=== PATIENT | female | born 1985 | race Caucasian/White ===

== ENCOUNTER 2018-07-21 21:27 | Observation (INO) ==
[2018-07-21 21:54] LABS: Microscopic, Urine URINE MICROSCOPIC (MICROSCOPIC)
[2018-07-21 21:57] LABS: Basophils # 0.1 K/mm3 (0-0.2); Basophils % 0.5 % (0.1-2.0); Eosinophils # 0.1 K/mm3 (0.0-0.4); Eosinophils % 1.1 % (0.1-12.0); Hematocrit 37.5 % (37.0-47.0); Hemoglobin 12.5 g/dL (12.2-16.2); Lymphocytes # 2.4 K/mm3 (0.7-4.5); Mean Corpuscular HGB Conc 33.3 g/dL (31.8-35.4); Mean Corpuscular Hemoglobin 30.3 pg (27.0-31.2); Mean Platelet Volume 9.1 fl (7.4-10.4); Monocytes # 0.4 K/mm3 (0.1-1.0); Monocytes % 4.3 % (1.7-9.3); Neutrophils # 6.6 K/mm3 (1.8-7.8); Neutrophils % 69.1 % (37.0-80.0); Platelet Count 188 K/mm3 (142-424); Red Blood Count 4.12 M/mm3 (4.20-5.40); Red Cell Distribution Width 13.3 % (11.5-17.5); White Blood Count 9.6 K/mm3 (4.8-10.8)
[2018-07-21 22:07] LABS: Appearance,Urine CLEAR (Clear); Bilirubin,Urine Negative (Negative); Blood, Urine 1+ (Negative); Color,Urine YELLOW (Yellow); Glucose,Urine (UA) Negative (Negative); Ketones,Urine Negative (Negative); Leukocyte Esterase,Urine Negative (Negative); Protein,Urine Negative (Negative); Urobilinogen,Urine 0.2 EU/dl (0.2)
[2018-07-21 22:09] LABS: Albumin Level 4.2 gm/dL (3.4-5.0); Albumin/Globulin Ratio 1.2 (1.1-1.8); Anion Gap 12.9 mEq/L (5-15); Bilirubin,Total 0.5 mg/dL (0.2-1.0); Globulin 3.5 gm/dl (1.3-3.2); Potassium 3.9 mmoL/L (3.5-5.1); Total Protein,Serum 7.7 gm/dL (6.4-8.2)
[2018-07-21 22:53] LABS: Bacteria,Urine 2+ /lpf
--- NOTE | 2018-07-21 23:17 | Emergency Department Note ---
ED Disposition Clinical Impression: Biliary dyskinesia Disposition: Admitted as Observation Condition on Discharge: Good Instructions: DI for Acute Abdomen Referrals: Pinky Sanchez [Primary Care Provider] - - Critical Care Critical Care Time: No Attestation: On 07/21/18, the high probability of a clinically significant, sudden or life threatening deterioration of the following system(s) required my full and direct attention, intervention and personal management. The time I documented below is in addition to time spent performing reported procedures but includes the following listed in this critical care notation. Medical Decision Making - Medical Records Medical records reviewed: Yes: I reviewed the patient's medical records. - Arvind Inquiry Pt receiving controlled substance: No Vital Signs: 07/21/18 21:28 07/21/18 22:28 Temperature 98.1 F Temperature Source Oral Pulse Rate [Right Brachial] 80 84 Respiratory Rate 16 17 Blood Pressure [Right Arm] 141/101 H 144/74 H Blood Pressure Mean [Right Arm] 114 97 02 Sat by Pulse Oximetry 97 98 - Lab Data Lab results reviewed: Yes: I reviewed the patient's lab results. Lab Results 07/21/18 21:45: Urine Color Yellow, Urine Appearance Clear, Urine pH 7.0, Ur Specific [place] 1.020, Urine Protein Negative, Urine Glucose (UA) Negative, Urine Ketones Negative, Urine Blood 1+, Urine Nitrate Negative, Urine Bilirubin Negative, Urine Urobilinogen 0.2, Ur Leukocyte Esterase Negative, Urine RBC 3-5, Urine WBC 3-5, Ur Squamous Epith Cells 3-5, Urine Bacteria 2+ 07/21/18 21:45: WBC 9.6, RBC 4.12 L, Hgb 12.5, Hct 37.5, MCV 91.0, MCH 30.3, MCH C 33.3, RDW 13.3, Plt Count 188, MPV 9.1, Neut % (Auto) 69.1, Lymph % (Auto) 25.0, [place] % (Auto) 4.3, Eos % (Auto) 1.1, Baso % (Auto) 0.5, Neut # (Auto) 6.6, Lymph # (Auto) 2.4, [place] # (Auto) 0.4, Eos # (Auto) 0.1, Baso # (Auto) 0.1 07/21/18 21:45: Urine HCG, Qual Negative 07/21/18 21:45: Sodium 140, Potassium 3.9, Chloride 103, Carbon Dioxide 28, Anion Gap 12.9, BUN 10, Creatinine 0.60, Estimated Creat Clear 154, Estimated GFR 117, Est GFR ( Amer) 141, Glucose 93, Calcium 9.0, Total Bilirubin 0.5, AST 68 H, ALT 57, Alkaline Phosphatase 90, Total Protein 7.7, Albumin 4.2, Globulin 3.5 H, Albumin/Globulin Ratio 1.2, Amylase 40, Lipase 212 Result diagrams: 07/21/18 21:45 07/21/18 21:45 Orders (Tests/Meds): ED MEDICATIONS Discontinued Medications Generic Name Dose Route Start Last Admin Trade Name Freq PRN Reason Stop Dose Admin Famotidine 20 mg 07/21/18 21:39 07/21/18 21:46 Pepcid 20mg/2ml Vial IV 07/21/18 21:40 20 mg ONCE ONE Administration Sodium Chloride 1,000 mls @ 999 mls/hr 07/21/18 21:45 07/21/18 21:47 Sod Chlor 0.9% 1000ml Bag IV 07/21/18 22:45 999 mls/hr .Q1H1M ERIC Administration Metoclopramide HCl 10 mg 07/21/18 21:39 07/21/18 21:47 Reglan 10mg/2ml Vial IVP 07/21/18 21:40 10 mg ONCE ONE Administration ORDERS Category Date Time Status CT abdomen pelvis wo con Stat Cat Scan 07/21/18 21:40 Taken Urinalysis and Microscopic Stat Lab 07/21/18 21:45 Ordered Urine Culture Stat Micro 07/21/18 21:45 Received - CT Data CT Scan: Abdomen, Pelvis Time Received: 23:[address] Reviewed: Yes: I have viewed the radiologist's interpretation Preliminary Findings: Abnormal (see report ) - Physician Consults Physician Consulted: leigh ann Reason -: Admission Nausea/Vomiting/Diarrhea HPI - General Chief complaint: Abdominal Pain Stated complaint: Upper Abd and Back Pain Time Seen by Provider: 07/21/18 23:10 Mode of Arrival: Ambulatory Source of Information: Patient, Significant Other, Medical Record ( ) Limitations: No Limitations Description of Symptoms (Recalled from ER Triage Doc. by RN): Reports heartburn, nausea, and mid gastric abd pain that started a couple months ago after the of her child. Reports she thinks it is gallbladder. Reports she came in tonight because her pain got worse over the last 3 hours. - History of Present Illness HPI Narrative: progressive upper abd pain with nausea and rad to back - which has been more common and worse pain tonight with nausea but no fever MD complaint: nausea, vomiting, abdominal pain Onset (ago): week(s) Associated Abdominal Pain: Yes Location of pain: RUQ, epigastric Severity: moderate Consistency: intermittent Associated symptoms: nausea/vomiting - Related Data Home Medications Medication Instructions Recorded Confirmed No Known Home Medications 07/21/18 07/21/18 Allergies Allergy/AdvReac Type Severity Reaction Status Date / Time No Known Allergies Allergy Verified 07/21/18 21:39 [facility] History I have reviewed the patient's past medical history: Yes ROS Obtained: Yes All systems reviewed & no additional complaints - Constitutional Constitutional: Denies fever(s) - Eyes Eyes: Denies change in vision - ENT Ears, Nose, Mouth, and Throat: Denies sore throat - Cardiovascular Cardiovascular: Denies chest pain - Respiratory Respiratory: No cough - Gastrointestinal Gastrointestingal: Reports: as per HPI, abdominal pain, nausea. Denies: diarrhea, vomiting - Genitourinary Female Genitourinary: Denies hematuria - Musculoskeletal Musculoskeletal: Denies joint pain, Denies neck pain - Integumentary/Breasts Skin/Breast: Denies rash - Neurologic Neurologic: Denies seizure-like activity Physical Exam - General General appearance: alert, in no apparent distress - Head Head exam: normocephalic - Eye Eye exam: Present: PERRL, EOMI. Absent: scleral icterus - ENT ENT exam: Present: mucous membranes moist - Neck Neck exam: Present: trachea midline - Respiratory Respiratory exam: Present: normal lung sounds bilaterally - Cardiovascular Cardiovascular exam: Present: regular rate. Absent: systolic murmur - Abdominal Exam Abdominal exam: Present: soft, tenderness, Rogers's sign Abdominal tenderness: Present: RUQ, moderate - Extremities Exam Extremities exam: Present: full ROM - Back Exam Back exam: Absent: CVA tenderness (R) - Neurological Exam Neurological exam: Present: alert, oriented X3, CN II-XII intact - Psychiatric Psychiatric exam: Present: normal affect - Skin Skin exam: Absent: rash
[2018-07-22 06:34] LABS: Albumin Level 3.4 gm/dL (3.4-5.0); Albumin/Globulin Ratio 1.2 (1.1-1.8); Bilirubin,Total 0.9 mg/dL (0.2-1.0); Calcium 8.1 mg/dL (8.5-10.1); Globulin 2.8 gm/dl (1.3-3.2); Total Protein,Serum 6.2 gm/dL (6.4-8.2)
[2018-07-22 06:43] LABS: Basophils % 0.7 % (0.1-2.0); Eosinophils % 0.9 % (0.1-12.0); Hematocrit 32.5 % (37.0-47.0); Lymphocytes # 1.2 K/mm3 (0.7-4.5); Lymphocytes % 30.6 K/mm3 (10-50); Mean Corpuscular HGB Conc 32.9 g/dL (31.8-35.4); Mean Corpuscular Hemoglobin 30.1 pg (27.0-31.2); Mean Corpuscular Volume 91.7 fl (81-99); Monocytes # 0.2 K/mm3 (0.1-1.0); Monocytes % 5.6 % (1.7-9.3); Neutrophils # 2.5 K/mm3 (1.8-7.8); Neutrophils % 62.2 % (37.0-80.0); Platelet Count 178 K/mm3 (142-424); Red Blood Count 3.54 M/mm3 (4.20-5.40); Red Cell Distribution Width 13.4 % (11.5-17.5)
[2018-07-22 06:54] LABS: Hemoglobin 10.8 g/dL (12.2-16.2)
--- NOTE | 2018-07-22 07:16 | History & Physical Report ---
HPI HPI: This is a 32-year-old female who presented to the emergency room overnight with increasing pain in the epigastric region. She describes a 5-6-month history of intermittent pain in the epigastric region and mid abdomen. Some nausea with emesis. No jaundice. No fevers. She describes the pain as "sharp and sometimes burning and sometimes dull". Patient in the emergency department revealed no significant laboratory abnormality. A CT scan did reveal distention of the gallbladder and an ultrasound has been. Repeat laboratory evaluation reveals elevated transaminases. [facility] History Medical History: Reports:: Palpitations Denies:: Cancer, Diabetes Mellitus Type 1, Diabetes Mellitus Type 2, MRSA Amputation: No - *Social History Educational Level: Completed College Smoking Status: Never smoker Alcohol Intake: never Occupational Status: employed Housing: house Household Members: spouse - Psychiatric History Expresses thoughts of harming self/others: None Suicide Plan Description: No Plan *Family Hx:: Cancer, Diabetes Review of Systems - Constitutional Denies body ache(s) - Eyes Denies change in vision - ENT Denies change in voice - *Cardiovascular Denies chest pain - *Respiratory Denies cough - *Gastrointestinal Reports abdominal pain, Reports heartburn, Reports nausea, Reports vomiting, Denies vomiting blood, Denies loose stools, Denies black, tarry stools, Denies pain with swallowing - *Genitourinary Denies abnormal vaginal bleeding - *Musculoskeletal Denies abnormal walking - Integumentary/Breasts Denies change in hair - *Neurologic Denies seizure-like activity - Psychiatric Denies anxiety - Endocrine Denies cold intolerance - Hematologic/Lymphatic Denies easy bleeding - Allergic/Immunologic Reports GI upset with certain foods Meds Home Medications Medication Instructions Recorded Confirmed Type No Known Home Medications 07/21/18 07/21/18 History Allergies Allergy/AdvReac Type Severity Reaction Status Date / Time No Known Allergies Allergy Verified 07/21/18 21:39 Exam Vital signs and Labs for Last 24 Hours: Temp Pulse Resp BP Pulse Ox 98.3 F 87 14 107/62 L 95 07/22/18 04:14 07/22/18 04:14 07/22/18 04:14 07/22/18 04:14 07/22/18 04:14 Laboratory Results - last 24 hr 07/21/18 21:45: Urine Color Yellow, Urine Appearance Clear, Urine pH 7.0, Ur Specific [place] 1.020, Urine Protein Negative, Urine Glucose (UA) Negative, Urine Ketones Negative, Urine Blood 1+, Urine Nitrate Negative, Urine Bilirubin Negative, Urine Urobilinogen 0.2, Ur Leukocyte Esterase Negative, Urine RBC 3-5, Urine WBC 3-5, Ur Squamous Epith Cells 3-5, Urine Bacteria 2+ 07/21/18 21:45: WBC 9.6, RBC 4.12 L, Hgb 12.5, Hct 37.5, MCV 91.0, MCH 30.3, MCHC 33.3, RDW 13.3, Plt Count 188, MPV 9.1, Neut % (Auto) 69.1, Lymph % (Auto) 25.0, [place] % (Auto) 4.3, Eos % (Auto) 1.1, Baso % (Auto) 0.5, Neut # (Auto) 6.6, Lymph # (Auto) 2.4, [place] # (Auto) 0.4, Eos # (Auto) 0.1, Baso # (Auto) 0.1 07/21/18 21:45: Urine HCG, Qual Negative 07/21/18 21:45: Sodium 140, Potassium 3.9, Chloride 103, Carbon Dioxide 28, Anion Gap 12.9, BUN 10, Creatinine 0.60, Estimated Creat Clear 154, Estimated GFR 117, Est GFR ( Amer) 141, Glucose 93, Calcium 9.0, Total Bilirubin 0.5, AST 68 H, ALT 57, Alkaline Phosphatase 90, Total Protein 7.7, Albumin 4.2, Globulin 3.5 H, Albumin/Globulin Ratio 1.2, Amylase 40, Lipase 212 07/22/18 06:07: WBC 4.0 L D, RBC 3.54 L, Hgb 10.8 L D, Hct 32.5 L, MCV 91.7, MCH 30.1, MCHC 32.9, RDW 13.4, Plt Count 178, MPV 9.0, Neut % (Auto) 62.2, Lymph % (Auto) 30.6, [place] % (Auto) 5.6, Eos % (Auto) 0.9, Baso % (Auto) 0.7, Neut # (Auto) 2.5, Lymph # (Auto) 1.2, [place] # (Auto) 0.2, Eos # (Auto) 0.0, Baso # (Auto) 0.0 07/22/18 06:07: Sodium 139, Potassium 4.0, Chloride 108 H, Carbon Dioxide 23, Anion Gap 12.0, BUN 8, Creatinine 0.53 L, Estimated Creat Clear 181, Estimated GFR 135, Est GFR ( Amer) 163, Glucose 102, Calcium 8.1 L, Total Bilirubin 0.9, AST 525 H* D, ALT 367 H*, Alkaline Phosphatase 111, Total Protein 6.2 L, Albumin 3.4 D, Globulin 2.8, Albumin/Globulin Ratio 1.2 I & O for Last 24 hours: Intake & Output 07/19/18 07/20/18 07/21/18 07/22/18 11:59 11:59 11:59 11:59 Intake Total 1000 / 1000 Balance 1000 / 1000 Weight 164 lb 5 oz - Constitutional no acute distress - *Routine HEENT Exam Head: Present: normocephalic, atraumatic - *Routine Neck Exam Present: full ROM - Routine Chest/Breast/Axilla Exam Chest wall: Absent: tenderness - *Routine Respiratory Exam Absent: respiratory distress - *Routine Cardiovascular Exam Present: RRR - *Routine Abdominal Exam Present: soft, tenderness. Absent: distended, rebound, guarding - *Routine Extremities Exam Present: full ROM. Absent: cyanosis, clubbing, edema - Routine Back/Spine/Pelvis Exam Back/Spine: Present: full ROM - *Routine Skin Exam Present: intact - *Routine Neurological Exam Present: alert, oriented X3 - Routine Psychiatric Exam Present: normal affect Results - Results Lab Results Last 24 Hours:: Laboratory Results - last 24 hr 07/21/18 21:45: Urine Color Yellow, Urine Appearance Clear, Urine pH 7.0, Ur Specific [place] 1.020, Urine Protein Negative, Urine Glucose (UA) Negative, Urine Ketones Negative, Urine Blood 1+, Urine Nitrate Negative, Urine Bilirubin Negative, Urine Urobilinogen 0.2, Ur Leukocyte Esterase Negative, Urine RBC 3-5, Urine WBC 3-5, Ur Squamous Epith Cells 3-5, Urine Bacteria 2+ 07/21/18 21:45: WBC 9.6, RBC 4.12 L, Hgb 12.5, Hct 37.5, MCV 91.0, MCH 30.3, MCHC 33.3, RDW 13.3, Plt Count 188, MPV 9.1, Neut % (Auto) 69.1, Lymph % (Auto) 25.0, [place] % (Auto) 4.3, Eos % (Auto) 1.1, Baso % (Auto) 0.5, Neut # (Auto) 6.6, Lymph # (Auto) 2.4, [place] # (Auto) 0.4, Eos # (Auto) 0.1, Baso # (Auto) 0.1 07/21/18 21:45: Urine HCG, Qual Negative 07/21/18 21:45: Sodium 140, Potassium 3.9, Chloride 103, Carbon Dioxide 28, Anion Gap 12.9, BUN 10, Creatinine 0.60, Estimated Creat Clear 154, Estimated GFR 117, Est GFR ( Amer) 141, Glucose 93, Calcium 9.0, Total Bilirubin 0.5, AST 68 H, ALT 57, Alkaline Phosphatase 90, Total Protein 7.7, Albumin 4.2, Globulin 3.5 H, Albumin/Globulin Ratio 1.2, Amylase 40, Lipase 212 07/22/18 06:07: WBC 4.0 L D, RBC 3.54 L, Hgb 10.8 L D, Hct 32.5 L, MCV 91.7, MCH 30.1, MCHC 32.9, RDW 13.4, Plt Count 178, MPV 9.0, Neut % (Auto) 62.2, Lymph % (Auto) 30.6, [place] % (Auto) 5.6, Eos % (Auto) 0.9, Baso % (Auto) 0.7, Neut # (Auto) 2.5, Lymph # (Auto) 1.2, [place] # (Auto) 0.2, Eos # (Auto) 0.0, Baso # (Auto) 0.0 07/22/18 06:07: Sodium 139, Potassium 4.0, Chloride 108 H, Carbon Dioxide 23, Anion Gap 12.0, BUN 8, Creatinine 0.53 L, Estimated Creat Clear 181, Estimated GFR 135, Est GFR ( Amer) 163, Glucose 102, Calcium 8.1 L, Total Bilirubin 0.9, AST 525 H* D, ALT 367 H*, Alkaline Phosphatase 111, Total Protein 6.2 L, Albumin 3.4 D, Globulin 2.8, Albumin/Globulin Ratio 1.2 US - abdomen: pending Assessment and Plan (1) Distended bladder Current visit: Yes Status: Acute Category: Medical Code(s): N32.89 - Other specified disorders of bladder Follow-up pending ultrasound (2) Transaminasemia Current visit: Yes Status: Acute Category: Medical Code(s): R74.0 - Nonspecific elevation of levels of transaminase and lactic acid dehydrogenase [LDH] Hepatitis panel ordered (3) Biliary dyskinesia Current visit: Yes Status: Acute Category: Medical Code(s): K82.8 - Other specified diseases of gallbladder Possible cholecystectomy (pending above) The patient states that she feels "much better this morning". She states that she would prefer to have surgery later this week and not today if at all possible.
--- NOTE | 2018-07-22 07:34 | Pharmacy Consult Notes ---
[facility] Pharmacy VTE Monitoring - Patient Demographics Admission date: 07/21/18 Report Date: 07/22/18 Time: 07:34 Allergies/Adverse Reactions: Patient Allergies No Known Allergies Allergy (Verified 07/21/18 21:39) Height: 1.57 m Weight: 74.531 kg Patient Problems: Current Active Problems Biliary dyskinesia (Acute) Distended bladder (Acute) Transaminasemia (Acute) - VTE Risk Labs: VTE Related Lab Results Hgb 10.8 g/dL (12.2-16.2) L D 07/22/18 06:07 Hct 32.5 % (37.0-47.0) L 07/22/18 06:07 Plt Count 178 K/mm3 (142-424) 07/22/18 06:07 BUN 8 mg/dL (7-18) 07/22/18 06:07 Creatinine 0.53 mg/dL (0.55-1.02) L 07/22/18 06:07 Estimated Creat Clear 181 mL/min (0-300) 07/22/18 06:07 Was VTE Risk Assessment Performed: No VTE Risk Level: Very Low Risk - Prophylaxis VTE Prophylaxis Ordered?: Yes Types of VTE Prophylaxis: TEDS Knee High Location of Applied Device: Bilateral Lower Extremeties - VTE Diagnosis Confirmed Treatment or plan recommended: Continue Current Treatment
--- NOTE | 2018-07-22 12:03 | Progress Note ---
Subjective Patient reports: feels better Exam Vital signs and Labs for Last 24 Hours: Temp Pulse Resp BP Pulse Ox 98.4 F 67 16 115/70 95 07/22/18 07:16 07/22/18 07:16 07/22/18 07:16 07/22/18 07:16 07/22/18 07:16 Laboratory Results - last 24 hr 07/21/18 21:45: Urine Color Yellow, Urine Appearance Clear, Urine pH 7.0, Ur Specific [place] 1.020, Urine Protein Negative, Urine Glucose (UA) Negative, Urine Ketones Negative, Urine Blood 1+, Urine Nitrate Negative, Urine Bilirubin Negative, Urine Urobilinogen 0.2, Ur Leukocyte Esterase Negative, Urine RBC 3-5, Urine WBC 3-5, Ur Squamous Epith Cells 3-5, Urine Bacteria 2+ 07/21/18 21:45: WBC 9.6, RBC 4.12 L, Hgb 12.5, Hct 37.5, MCV 91.0, MCH 30.3, MCHC 33.3, RDW 13.3, Plt Count 188, MPV 9.1, Neut % (Auto) 69.1, Lymph % (Auto) 25.0, [place] % (Auto) 4.3, Eos % (Auto) 1.1, Baso % (Auto) 0.5, Neut # (Auto) 6.6, Lymph # (Auto) 2.4, [place] # (Auto) 0.4, Eos # (Auto) 0.1, Baso # (Auto) 0.1 07/21/18 21:45: Urine HCG, Qual Negative 07/21/18 21:45: Sodium 140, Potassium 3.9, Chloride 103, Carbon Dioxide 28, Anion Gap 12.9, BUN 10, Creatinine 0.60, Estimated Creat Clear 154, Estimated GFR 117, Est GFR ( Amer) 141, Glucose 93, Calcium 9.0, Total Bilirubin 0.5, AST 68 H, ALT 57, Alkaline Phosphatase 90, Total Protein 7.7, Albumin 4.2, Globulin 3.5 H, Albumin/Globulin Ratio 1.2, Amylase 40, Lipase 212 07/22/18 06:07: WBC 4.0 L D, RBC 3.54 L, Hgb 10.8 L D, Hct 32.5 L, MCV 91.7, MCH 30.1, MCHC 32.9, RDW 13.4, Plt Count 178, MPV 9.0, Neut % (Auto) 62.2, Lymph % (Auto) 30.6, [place] % (Auto) 5.6, Eos % (Auto) 0.9, Baso % (Auto) 0.7, Neut # (Auto) 2.5, Lymph # (Auto) 1.2, [place] # (Auto) 0.2, Eos # (Auto) 0.0, Baso # (Auto) 0.0 07/22/18 06:07: Sodium 139, Potassium 4.0, Chloride 108 H, Carbon Dioxide 23, Anion Gap 12.0, BUN 8, Creatinine 0.53 L, Estimated Creat Clear 181, Estimated GFR 135, Est GFR ( Amer) 163, Glucose 102, Calcium 8.1 L, Total Bilirubin 0.9, AST 525 H* D, ALT 367 H*, Alkaline Phosphatase 111, Total Protein 6.2 L, Albumin 3.4 D, Globulin 2.8, Albumin/Globulin Ratio 1.2 I & O for Last 24 hours: Intake & Output 07/20/18 07/21/18 07/22/18 07/23/18 11:59 11:59 11:59 11:59 Intake Total 1000 / 1000 Balance 1000 / 1000 Weight 164 lb 5 oz Narrative: The patient's liver function studies reveal elevated transaminases. The patient's ultrasound reveals changes consistent with acute calculus cholecystitis. - Constitutional no acute distress Progress Note: A&P (1) Distended bladder Status: Acute Current Visit: Yes (2) Transaminasemia Status: Acute Current Visit: Yes (3) Acute calculous cholecystitis Status: Acute Assessment and plan: The patient is currently without symptoms and states that she "wants to go home". She is scheduled for laparoscopic cholecystectomy tomorrow. She will be discharged with a prescription for Augmentin and [place]. She will return tomorrow where her liver function studies and her amylase/lipase will be repeated. Pending results of studies she will undergo laparoscopic cholecystectomy with possible cholangiogram. Current Visit: Yes
--- NOTE | 2018-07-22 12:06 | Discharge Summary ---
General - General Admission date:: 07/22/18 Discharge date: 07/22/18 HPI HPI: This is a 32-year-old female who presented with abdominal pain and nausea. CT scan revealed a distended gallbladder and the surgical service was consulted for admission. Hospital Course Hospital Course: Initially the patient's laboratory studies were essentially normal. Repeat liver function studies revealed elevated transaminases. Hepatitis panel was ordered prior to ultrasound results being available. The patient's ultrasound did show changes consistent with acute calculus cholecystitis. On the morning of July 22 the patient was essentially without symptoms. She did say that she wished to go home with plans for laparoscopic cholecystectomy on July 23. The patient will return on July 23 where amylase/lipase and LFTs will be repeated. Pending results of the studies she will undergo laparoscopic cholecystectomy and possible cholangiogram. She is being discharged with Augmentin and [place]. Objective Vital signs: Temp Pulse Resp BP Pulse Ox 98.4 F 67 16 115/70 95 07/22/18 07:16 07/22/18 07:16 07/22/18 07:16 07/22/18 07:16 07/22/18 07:16 no acute distress - *Routine HEENT Exam Head: Present: normocephalic, atraumatic - *Routine Neck Exam Present: full ROM - Routine Chest/Breast/Axilla Exam Chest wall: Absent: tenderness - *Routine Respiratory Exam Absent: respiratory distress - *Routine Cardiovascular Exam Present: RRR - *Routine Abdominal Exam Present: soft. Absent: tenderness - *Routine Extremities Exam Present: full ROM. Absent: cyanosis, clubbing, edema - Routine Back/Spine/Pelvis Exam Back/Spine: Present: full ROM - *Routine Skin Exam Present: intact - *Routine Neurological Exam Present: alert, oriented X3 - Routine Psychiatric Exam Present: normal affect Results Labs on day of discharge: Labs from last 24 hours 07/22/18 07/22/18 07/21/18 06:07 06:07 21:45 WBC 4.0 L D RBC 3.54 L Hgb 10.8 L D Hct 32.5 L MCV 91.7 MCH 30.1 MCHC 32.9 RDW 13.4 Plt Count 178 MPV 9.0 Neut % (Auto) 62.2 Lymph % (Auto) 30.6 [place] % (Auto) 5.6 Eos % (Auto) 0.9 Baso % (Auto) 0.7 Neut # (Auto) 2.5 Lymph # (Auto) 1.2 [place] # (Auto) 0.2 Eos # (Auto) 0.0 Baso # (Auto) 0.0 Sodium 139 140 Potassium 4.0 3.9 Chloride 108 H 103 Carbon Dioxide 23 28 Anion Gap 12.0 12.9 BUN 8 10 Creatinine 0.53 L 0.60 Estimated Creat Clear 181 154 Estimated GFR 135 117 Est GFR ( Amer) 163 141 Glucose 102 93 Calcium 8.1 L 9.0 Total Bilirubin 0.9 0.5 AST 525 H* D 68 H ALT 367 H* 57 Alkaline Phosphatase 111 90 Total Protein 6.2 L 7.7 Albumin 3.4 D 4.2 Globulin 2.8 3.5 H Albumin/Globulin Ratio 1.2 1.2 Amylase 40 Lipase 212 Urine Color Urine Appearance Urine pH Ur Specific [place] Urine Protein Urine Glucose (UA) Urine Ketones Urine Blood Urine Nitrate Urine Bilirubin Urine Urobilinogen Ur Leukocyte Esterase Urine RBC Urine WBC Ur Squamous Epith Cells Urine Bacteria Urine HCG, Qual 07/21/18 07/21/18 07/21/18 21:45 21:45 21:45 WBC 9.6 RBC 4.12 L Hgb 12.5 Hct 37.5 MCV 91.0 MCH 30.3 MCHC 33.3 RDW 13.3 Plt Count 188 MPV 9.1 Neut % (Auto) 69.1 Lymph % (Auto) 25.0 [place] % (Auto) 4.3 Eos % (Auto) 1.1 Baso % (Auto) 0.5 Neut # (Auto) 6.6 Lymph # (Auto) 2.4 [place] # (Auto) 0.4 Eos # (Auto) 0.1 Baso # (Auto) 0.1 Sodium Potassium Chloride Carbon Dioxide Anion Gap BUN Creatinine Estimated Creat Clear Estimated GFR Est GFR ( Amer) Glucose Calcium Total Bilirubin AST ALT Alkaline Phosphatase Total Protein Albumin Globulin Albumin/Globulin Ratio Amylase Lipase Urine Color Yellow Urine Appearance Clear Urine pH 7.0 Ur Specific [place] 1.020 Urine Protein Negative Urine Glucose (UA) Negative Urine Ketones Negative Urine Blood 1+ Urine Nitrate Negative Urine Bilirubin Negative Urine Urobilinogen 0.2 Ur Leukocyte Esterase Negative Urine RBC 3-5 Urine WBC 3-5 Ur Squamous Epith Cells 3-5 Urine Bacteria 2+ Urine HCG, Qual Negative DS: Diagnosis - Discharge Diagnosis (1) Distended bladder Status: Acute (2) Transaminasemia Status: Acute (3) Acute calculous cholecystitis Status: Acute Discharge Plan - Patient Discharge Instructions ACTIVITY: Continue current activity DIET: low fat, low cholesterol Additional Instructions: As stated above, the patient is being discharged with plans for surgery tomorrow. She is being discharged on [place] and Augmentin and will follow up tomorrow for outpatient surgery. She will undergo repeat amylase/lipase and repeat LFTs. Pending results of the studies she will tentatively be scheduled for laparoscopic cholecystectomy and possible cholangiogram. - Follow up Plan Home Medications: Home Medications Medication Instructions Recorded Confirmed Type No Known Home Medications 07/21/18 07/21/18 History Prescriptions/Medication Reconciliation: No Action No Known Home Medications Other Amb Orders: Amylase Time Frame: 07/23/18, Location: None Selected Lipase Time Frame: 07/23/18, Location: None Selected Liver Panel Time Frame: 07/23/18, Location: None Selected
[2018-07-23 07:17] LABS: Hepatitis B Core Antibody IgM Negative (Negative); Hepatitis B Surface Antigen Negative (Negative)
[2018-07-23 08:08] LABS: Hepatitis C Antibody <0.1 s/co ratio (0.0-0.9)
== END 2018-07-22 13:05 | disposition home or self-care (01) ==
LOC: ER 21:27 → 2ND 21:27
PROVIDERS: ADMIT Surgery; ATTEND Surgery

== ENCOUNTER → 2018-07-23 08:02 | Outpatient (CLI) | payer OTHER, SELFPAY ==
[2018-07-23 08:46] LABS: Alanine Aminotransferase 377 U/L (12-78); Albumin Level 3.8 gm/dL (3.4-5.0); Alkaline Phosphatase 119 U/L (46-116); Amylase 37 U/L (25-125); Aspartate Amino Transferase 137 U/L (15-37); Bilirubin,Direct 0.1 mg/dL (0.0-0.2); Bilirubin,Indirect 0.4 mg/dL (0.0-0.9); Bilirubin,Total 0.5 mg/dL (0.2-1.0); Lipase 116 u/L (73-393); Total Protein,Serum 7.5 gm/dL (6.4-8.2)
== END ==
PROVIDERS: PCP Physician Assistant; Visit Provider Surgery
DX: N32.89 Other specified disorders of bladder (principal)
CPT/HCPCS: 36415; 80076; 82150; 83690

== ENCOUNTER 2024-04-19 18:47 | Emergency (ER) | payer OTHER, SELFPAY ==
[2024-04-19 20:00] VITALS: BP 162/117; PULSE 94; RESP 20; TEMP 36.6; O2SAT 100; BMI 33.6
[2024-04-19 20:06] LABS: Apearance,Urine Cloudy (Clear); Color,Urine Yellow (Yellow); Glucose,Urine (UA) Negative (Negative); Protein,Urine 3+ (Negative)
[2024-04-19 20:07] LABS: Bilirubin,Urine Negative (Negative); Blood, Urine 1+ (Negative); Ketones,Urine Negative (Negative); UTC Leukocyte Esterase,Urine 1+ (Negative); UTC Nitrate,Urine Negative (Negative); Urobilinogen,Urine 0.2 EU/dl (0.2)
--- NOTE | 2024-04-19 20:32 | EXP.UTC ---
Discharge Plan Disposition Patient Disposition: Home, Self-Care Condition: Good Prescriptions Prescriptions: New cefdinir 300 mg capsule 300 mg PO BID 7 Days Qty: 14 0RF phenazopyridine [Pyridium] 200 mg tablet 200 mg PO Q8H 2 Days Qty: 6 0RF Referrals Follow up/Referrals: Jasper Richardson MD [Primary Care Provider] - See instructions Activity Restrictions/Add. Instructions Additional Instructions/Restrictions: *Increase fluids. Water not Soda or Tea *Start antibiotic immediately and be sure to take as ordered for the FULL length of time although you should start to see improvement over the next 48 hours *Pyridium as needed Remember this medication will turn your urine . This is normal but it will stain what ever it gets on *You should not use Pyridium for more than 48 hours. If so , follow up with your primary physician to review urine culture and ensure that antibiotic is adequate for infection *Be SURE to follow up anytime for new or worsening symptoms with your family doctor. AND in 48 hours for urine culture results with your family doctor, if you do not have a doctor then you may call back to the [facility] for urine culture results and further treatment. We do recommend that you choose and establish care with a Primary Care Physician. ?AND follow up with them ?in 10-14 days to repeat UA to ensure infection is resolved and blood no longer present *Be sure to let your PCP know that we sent urine cultures from the [facility] so they can follow up to ensure that you area the on the correct antibiotic Call your doctor office and make appointment for 48 hours (2 days from today) ?to follow up and get the results of your urine culture and further treatment Clinical Impressions Clinical Impression: UTI (urinary tract infection) Instructions Patient Instructions: DI for Urinary Tract Infection (UTI), Urinary Tract Infection Discharge ED Provider: Ashley Lopez [facility] [place] HPI General Stated complaint: frequency pain with urination,low back pain Mode of Arrival: Ambulatory Source of Information: Patient Limitations: No Limitations Time Seen by Provider: 04/19/24 20:32 Description of Symptoms (Recalled from Triage Doc. by RN): PATIENT C/O PAIN WITH URINATION AND RIGHT LOWER BACK PAIN X 2 DAYS. PATIENT STATES SHE WAS TREATED FOR A UTI ON 04/09/24 BUT DID NOT FINISH HER ANTIBIOTICS HEENT Symptoms (Recalled from RN notes): No Resp Symptoms (Recalled from RN notes): No Skin Symptoms (Recalled from RN notes): No MS Symptoms (Recalled from RN notes): No Functional Status (Recalled from RN notes): WNL History of Present Illness Provider Complaint: Patient states that she was seen and treated for UTI about a week ago but didnt finish the medication, she was feeling better so she stopped taking the medication then for the last couple of days she started again with symptoms States that she has been having right lower back pain, frequency and urgency and some discomfort when she urinates and feels like her UTI is back Related Data Previous Rx's Medication Instructions Recorded cefdinir 300 mg capsule 300 mg PO BID 7 days #14 caps 04/19/24 phenazopyridine 200 mg tablet 200 mg PO Q8H pain 2 days #6 tabs 04/19/24 (Pyridium) Allergies Allergy/AdvReac Type Severity Reaction Status Date / Time No Known Allergies Allergy Verified 07/21/18 21:39 Worker's Comp Is this a Worker's Comp case?: No [facility] Disclaimer: The information contained in this section may have been updated after the patient was seen, as this information can be updated by other users. Social History Smoking Status: Never smoker alcohol intake: never current occupational status: employed Travel in the last 8 weeks: None household members: spouse and children housing: house current occupation: [employer] current occupational exposures/hazards: No caffeine: Yes ROS Obtained: Yes All systems reviewed & no additional complaints except as documented and Yes Systems reviewed as appropriate & no additional complaints except as documented Constitutional Constitutional: Reports system reviewed and no additional complaints, except as documented, Reports as per HPI, Denies body ache, Denies chills and Denies fever(s) ENT Ears, Nose, Mouth, and Throat: Reports system reviewed and no additional complaints, except as documented and Reports as per HPI Cardiovascular Cardiovascular: Reports system reviewed and no additional complaints, except as documented and Reports as per HPI Respiratory Respiratory: Reports system reviewed and no additional complaints, except as documented and Reports as per HPI Gastrointestinal Gastrointestingal: Reports system reviewed and no additional complaints, except as documented and as per HPI; Denies abdominal pain, cramping, diarrhea, nausea or vomiting Genitourinary Female Genitourinary: Reports system reviewed and no additional complaints, except as documented, Reports as per HPI, Reports dysuria, Reports flank pain, Reports urinary frequency and Reports urinary urgency Musculoskeletal Musculoskeletal: Reports system reviewed and no additional complaints, except as documented and Reports as per HPI Physical Exam General General appearance: alert and in no apparent distress ENT ENT exam: Present mucous membranes moist Respiratory Respiratory exam: Present normal lung sounds bilaterally; Absent respiratory distress or wheezes Cardiovascular Cardiovascular exam: Present regular rate, normal rhythm and normal heart sounds Abdominal Exam Abdominal exam: Present soft and normal bowel sounds; Absent distention or tenderness Neurological Exam Neurological exam: Present alert, oriented X3 and normal gait Medical Decision Making Arvind Inquiry Pt receiving controlled substance: No Arvind was queried for this patient: No Vital Signs: 04/19/24 20:00 Temperature 97.9 F Temperature Source Oral Pulse Rate [Left Brachial] 94 H Respiratory Rate 20 Blood Pressure [Left Arm] 162/117 H Blood Pressure Mean [Left Arm] 132 Blood Pressure Source [Left Arm] Automatic Cuff Blood Pressure Position [Left Arm] Sitting 02 Sat by Pulse Oximetry 100 Oxygen Delivery Method Room Air Lab Data Lab results reviewed: Yes I reviewed the patient's lab results. Lab Results 04/19/24 20:05: Urine Color Yellow, Urine Appearance Cloudy, Urine pH 6.0, Ur Specific [place] 1.020, Urine Protein 3+, Urine Glucose (UA) Negative, Urine Ketones Negative, Urine Blood 1+, Urine Nitrate Negative, Urine Bilirubin Negative, Urine Urobilinogen 0.2, Ur Leukocyte Esterase 1+ A Orders (Tests/Meds): ORDERS Category Date Time Status Urine Culture Stat Micro 04/19/24 19:33 Received Medical Decision Narrative: Patient states that she has taken bactrim earlier today that was left over from a week ago when she was treated for UTI
[2024-04-19 20:52] VITALS: BP 162/117; PULSE 94; RESP 20; TEMP 36.6; O2SAT 100
--- NOTE | 2024-04-22 14:38 | PC.NURSE ---
REVIEWED URINE CULTURE WITH Dinora FERNANDES APRN AT THIS TIME. PATIENT'S CURRENT ANTIBIOTIC RESISTANT TO ORGANISM. NEW ANTIBIOTIC (MACROBID) SENT IN TO PHARMACY PER Dinora FERNANDES APRN. ATTEMPTED TO CALL PATIENT AT THIS TIME WITH NO ANSWER.
--- NOTE | 2024-04-22 14:48 | PC.NURSE ---
SPOKE WITH PATIENT'S AT THIS TIME, MESSAGE LEFT FOR PATIENT TO CALL BACK
--- NOTE | 2024-04-22 15:09 | PC.NURSE ---
SPOKE WITH PATIENT AT THIS TIME AND ADVISED HER TO STOP CEFDINIR AND START MACROBID AND FOLLOW UP WITH PCP IS SYMPTOMS PERSIST
== END 2024-04-19 20:58 | disposition home or self-care (01) ==
PROVIDERS: Emergency Provider Nurse Practitioner; PCP Family Medicine
DX: N39.0 Urinary tract infection, site not specified (principal); B96.29 Other Escherichia coli [E. coli] as the cause of diseases classified elsewhere; M54.59 Other low back pain; R35.0 Frequency of micturition; R39.15 Urgency of urination
CPT/HCPCS: 81003; 87086; 87088; 87186; 99204; 99212; G0463